=== PATIENT | female | born 1970 | race American Indian/Alaskan Native ===

== ENCOUNTER 2018-02-06 15:53 | Emergency (ER) | payer SELFPAY ==
[2018-02-06 16:02] VITALS: BP 132/92
--- NOTE | 2018-02-06 17:04 | Emergency Department Report ---
ED Lower Extremity HPI - General Chief Complaint: Extremity Injury, Lower Stated Complaint: FOOT PAIN Time Seen by Provider: 02/06/18 16:55 Source: patient Mode of arrival: Ambulatory Limitations: No Limitations - History of Present Illness Initial Comments: Ms. Adams is a 47 yo female who presents with right foot pain after stepping from school bus. She felt immediate pain over midfoot, radiating to left ankle. MD Complaint: ankle injury, foot injury -: Sudden, days(s) (2) Injury: Ankle: Right, Foot: Right Type of Injury: inversion, eversion Place: work Severity: mild, moderate Improves With: NSAID Worsens With: weight bearing Associated Symptoms: ambulatory Treatments Prior to Arrival: NSAIDS - Related Data Previous Rx's Medication Instructions Recorded Last Taken Type Ibuprofen 400 mg PO QID 5 Days #20 tablet 02/06/18 Unknown Rx Allergies Allergy/AdvReac Type Severity Reaction Status Date / Time No Known Allergies Allergy Unverified 02/06/18 16:02 ED Review of Systems ROS: Stated complaint: FOOT PAIN Other details as noted in HPI Constitutional: denies: fever, malaise Skin: denies: rash, lesions Neurological: denies: numbness, paresthesias ED Past Medical Hx - Past Medical History Previous Medical History?: Yes Hx Diabetes: Yes Hx Asthma: Yes - Surgical History Past Surgical History?: Yes Additional Surgical History: back surgery S1/L5 - Social History Smoking Status: Never Smoker Substance Use Type: None - Medications Home Medications: Home Medications Medication Instructions Recorded Confirmed Last Taken Type Ibuprofen 400 mg PO QID 5 Days #20 tablet 02/06/18 Unknown Rx ED Physical Exam - General Limitations: No Limitations General appearance: alert, in no apparent distress, other (pleasant, smiling, appears comfortable) - Head Head exam: Present: atraumatic, normocephalic - Extremities Exam Extremities exam: Present: normal inspection, full ROM, normal capillary refill , other (right foot: 2+DP pulse, no deformity, no tenderness right ankle: no swelling no tenderness intact achilles tendon). Absent: tenderness, pedal edema, joint swelling ED Course Vital Signs 02/06/18 15:56 Temperature 98.5 F Pulse Rate 75 Respiratory 16 Rate Blood Pressure 132/92 O2 Sat by Pulse 98 Oximetry ED Lower Extremity MDM - Radiology Data Radiology results: image reviewed interpreted by me: Right foot: 2 views no fx no subluxation right ankle 3 views no fx no subluxation - Medical Decision Making right foot strain, recommended RICE therapy, referred to orthopedic surgeon Critical care attestation.: If time is entered above; I have spent that time in minutes in the direct care of this critically ill patient, excluding procedure time. ED Disposition Clinical Impression: Right foot strain Disposition: DC-01 TO HOME OR SELFCARE Is pt being admited?: No Does the pt Need Aspirin: No Condition: Stable Instructions: Foot Sprain (ED) Prescriptions: Ibuprofen 400 mg PO QID 5 Days #20 tablet Referrals: KATHERINE MUNGUIA MD [Staff Physician] - 3-5 Days
--- NOTE | 2018-02-06 17:44 | XRay Report ---
FINAL REPORT EXAM: XR FOOT 3+V RT HISTORY: foot sprain TECHNIQUE: 3 views of the right foot PRIORS: Right ankle 02/06/2018 FINDINGS: There is no radiographic evidence of definite acute fracture or dislocation. No evidence of osseous lesion. Joint spaces are maintained. There is no evidence of significant degenerative arthrosis. IMPRESSION: No acute skeletal pathology
--- NOTE | 2018-02-06 17:44 | XRay Report ---
FINAL REPORT EXAM: XR ANKLE 3+V RT HISTORY: ankle pain injury TECHNIQUE: 3 views of the right ankle PRIORS: Right foot 02/06/2018 FINDINGS: There is no radiographic evidence of definite acute fracture or dislocation. No evidence of osseous lesion. Joint spaces are maintained. There is no evidence of significant degenerative arthrosis. IMPRESSION: No acute skeletal pathology
== END 2018-02-06 17:41 | disposition home or self-care (01) ==
LOC: ED 15:53
DX: S96.911A Strain of unspecified muscle and tendon at ankle and foot level, right foot, initial encounter (principal); E11.9 Type 2 diabetes mellitus without complications; I10 Essential (primary) hypertension; W22.8XXA Striking against or struck by other objects, initial encounter; Y93.89 Activity, other specified; Y99.0 Civilian activity done for income or pay; Y92.89 Other specified places as the place of occurrence of the external cause
CPT/HCPCS: 99283